=== PATIENT | male | born 1960 | race Hispanic/Latino ===

== ENCOUNTER 2021-08-31 17:00 | Observation (INO) | payer BC ==
[~2021-08-31] VITALS: Ht 165.1 cm; Wt 70.7 kg
[2021-08-31 10:42] LABS: BASOPHILS % (AUTO) 0.8 % (0.0-5.0); EOSINOPHILS % (AUTO) 2.6 % (0.0-8.0); LYMPHOCYTES % (AUTO) 26.3 % (21.0-51.0); MEAN CORPUSCULAR HEMOGLOBIN 28.9 pg (27.0-33.0); MEAN CORPUSCULAR HGB CONC 33.2 g/dL (32.0-36.0); MONOCYTES % (AUTO) 6.6 % (3.0-13.0); NEUTROPHILS % (AUTO) 63.6 % (40.0-77.0); PLATELET COUNT (AUTO) 214 K/uL (130-400); RED BLOOD CELL COUNT(AUTO) 5.06 MIL/uL (4.50-6.20); WHITE BLOOD COUNT (AUTO) 7.7 K/uL (4.8-10.8)
[2021-08-31 10:51] LABS: CREATININE 1.1 mg/dL (0.5-1.5); POTASSIUM 4.6 mmol/L (3.5-5.1)
[2021-08-31 14:39] VITALS: BP 141/71
[~2021-08-31 17:00] MED LIST: ATOR20TA65 PO; GABA300C PO; METF-446 PO; NAPR-1023 PO; PIOG15TA66 PO
[2021-09-01] VITALS (25 sets, daily range): BP systolic 94–154; BP diastolic 51–85
[2021-09-01] MEDS ORDERED: CEFAZOLIN SODIUM 1 GM VIAL ONE ×2 (06:18→06:51)
[2021-09-01] MEDS ORDERED: 0.9%NACL 1000ML 1,000 ML IV ONE (06:19)
[2021-09-01] MEDS ORDERED: BUPIVACAINE/EPI/PF 0.5% 30ML VIAL IJ ONE (06:51)
[2021-09-01] MEDS ORDERED: MORPHINE PF 100MG/10ML AMP IV ONE (06:52)
[2021-09-01] MEDS ORDERED: THROMBIN-JMI 20000 UNIT KIT TP ONE (06:52)
[2021-09-01] MEDS ORDERED: ROCURONIUM 10MG/1ML SYR 10 MG/ML ML ONE ×2 (06:59→08:17)
[2021-09-01] MEDS ORDERED: MIDAZOLAM HCL 1 MG/ML 2ML VIAL ONE (06:59)
[2021-09-01] MEDS ORDERED: PROPOFOL 10 MG/ML 20ML VIAL IV ONE (06:59)
[2021-09-01] MEDS ORDERED: FENTANYL CITRATE PF 50 MCG/1 ML 5ML AMP IV ONE (06:59)
[2021-09-01] MEDS ORDERED: DEXMEDETOMIDINE HCL 200 MCG/2 ML VIAL IV ONE (07:10)
[2021-09-01] MEDS ORDERED: KETAMINE 50MG/ML SYRINGE 50 MG/ML DISP.SYRIN IV ONE (07:12)
[2021-09-01] MEDS ORDERED: ONDANSETRON 4MG INJ ONE (07:15)
[2021-09-01] MEDS ORDERED: EPHEDRINE SULFATE 50 MG/ML AMPULE ONE (08:17)
[2021-09-01] MEDS ORDERED: TRANEXAMIC ACID 1000MG/10ML ONE (09:20)
[2021-09-01] MEDS ORDERED: GLYCOPYRROLATE 1 MG/5 ML SYRINGE ONE (10:14)
[2021-09-01] MEDS ORDERED: NEOSTIGMINE 5MG/5ML SYR IV ONE (10:15)
[2021-09-01] MEDS ORDERED: FENTANYL CITRATE PF 50 MCG/1 ML 2ML VIAL ONE (10:47)
[2021-09-01] MEDS ORDERED: MORPHINE 2 MG SYG IVP PRN (11:00)
[2021-09-01] MEDS ORDERED: NAPROXEN 500 MG PO SCH (11:00)
[2021-09-01] MEDS ORDERED: PROMETHAZINE HCL 25 MG/ML 1ML AMPULE IM PRN (11:00)
[2021-09-01] MEDS ORDERED: GABAPENTIN 300 MG CAPSULE PO SCH (11:00)
[2021-09-01] MEDS ORDERED: HYDROCODONE/ACETAMINOPHEN 5/325 MG TAB PO PRN (11:00)
[2021-09-01] MEDS ORDERED: PIOGLITAZONE 15MG TAB PO SCH (11:00)
[2021-09-01] MEDS ORDERED: 0.9%NACL 10ML VIAL IVP PRN (11:00)
[2021-09-01] MEDS ORDERED: INSULIN HUMULIN R 100 UNIT/ML 3ML ONE (11:15)
[2021-09-01] MEDS ORDERED: PHARMACY COMMUNICATION MISC SCH (11:30)
[2021-09-01] MEDS: DEXAMETHASONE SOD PHOSPHATE 4 MG/ML 1ML VIAL IVP SCH ×3 (13:09→23:26)
[2021-09-01] MEDS: LACTATED RINGERS 1000ML 1,000 ML IV SCH ×2 (13:09→23:26)
[2021-09-01] MEDS: CEFAZOLIN SODIUM 1 GM VIAL IVP SCH ×2 (13:09→21:18)
[2021-09-01] MEDS: METFORMIN HCL 500 MG TABLET PO SCH (21:18)
[2021-09-01] MEDS: ATORVASTATIN 20 MG TABLET PO SCH (21:18)
[2021-09-02 04:00] VITALS: BP 140/77
[2021-09-02] MEDS: DEXAMETHASONE SOD PHOSPHATE 4 MG/ML 1ML VIAL IVP SCH ×4 (04:53→19:59)
[2021-09-02] MEDS: CEFAZOLIN SODIUM 1 GM VIAL IVP SCH ×3 (04:54→19:59)
[2021-09-02] MEDS: INSULIN HUMULIN R 100 UNIT/ML 3ML SQ SCH ×4 (06:07→19:59)
[2021-09-02 08:00] VITALS: BP 134/72
[2021-09-02] MEDS: LACTATED RINGERS 1000ML 1,000 ML IV SCH (09:12)
[2021-09-02] MEDS: METFORMIN HCL 500 MG TABLET PO SCH ×2 (09:12→19:59)
[2021-09-02 12:00] VITALS: BP 111/58
[2021-09-02 16:20] VITALS: BP 106/53
[2021-09-02 19:00] VITALS: BP 126/70
[2021-09-02] MEDS ORDERED: LIDOCAINE HCL 2% JELLY 5 ML TP SCH (19:00)
[2021-09-02] MEDS: ATORVASTATIN 20 MG TABLET PO SCH (19:59)
[2021-09-03] VITALS: BP 141/70
[2021-09-03] MEDS: DEXAMETHASONE SOD PHOSPHATE 4 MG/ML 1ML VIAL IVP SCH (03:05)
[2021-09-03] MEDS: CEFAZOLIN SODIUM 1 GM VIAL IVP SCH (03:05)
[2021-09-03 04:00] VITALS: BP 138/74
[2021-09-03] MEDS: INSULIN HUMULIN R 100 UNIT/ML 3ML SQ SCH (06:00)
[2021-09-03] MEDS ORDERED: TAMSULOSIN HCL 0.4 MG CAP.ER.24H PO SCH (09:00)
[2021-09-03] MEDS: METFORMIN HCL 500 MG TABLET PO SCH (10:34)
== END 2021-09-03 11:55 | disposition home or self-care (01) ==
LOC: EDSTATUS 17:00 → DAHIP 09-01 05:55 → 4CH 09-01 13:00
PROVIDERS: ADMIT Neurological Surgery; ATTEND Neurological Surgery
DX: M48.061 Spinal stenosis, lumbar region without neurogenic claudication (principal); Z20.822 Contact with and (suspected) exposure to COVID-19; E11.9 Type 2 diabetes mellitus without complications; E78.5 Hyperlipidemia, unspecified; M24.28 Disorder of ligament, vertebrae; N40.1 Benign prostatic hyperplasia with lower urinary tract symptoms; R33.9 Retention of urine, unspecified; I10 Essential (primary) hypertension; Z79.899 Other long term (current) drug therapy
CPT/HCPCS: 80048; 85025; 87426; 36415; 71045; 93005; 63047; 63048 ×3; 96374; 96376 ×3; 96375 ×2; 82948 ×8; 72020; 96372 ×2; 76770; A6260; G0378 ×49; A4663; J7040; J7030 ×2; J7120 ×4; A4344; J3010 ×2; J0690 ×9; J3490 ×6; J2710; J2250; J2704; J2274; J2405; J1100 ×8; J1815 ×5; A4649 ×2; A4215; A4223; A4222; A4221; A4600